=== PATIENT | male | born 1960 | race Caucasian/White ===

== ENCOUNTER 2022-05-05 02:27 | Day surgery (SDC) | payer MEDICARE, OTHER, SELFPAY ==
[2022-04-27 12:43] VITALS: BMI 29.8
--- NOTE | 2022-04-27 12:51 | PC.NURSE ---
Report to the Outpatient Waiting Room, entrance under the green pavilion located off [facility], at time 0730 on date 05/05/22. OR Time: 0930. - You and your visitor will be asked a series of questions to screen for COVID 19 for your protection. - Only one visitor is allowed at this time. - The patient visitor is requested to leave or wait in car when not with patient. - A mask is required within the hospital. Patients may have clear liquids (water, carbonated beverages, clear teas, apple juice) until 3 hours prior to surgery with a maximum of 20 ounces. - No food from midnight until time of surgery Take the following medications with a SIP of water the morning of surgery: METOPROLOL, CARBAMAZEPINE, PHENOBARBITAL Medications to discontinue per physician: N/A (TAKES VITAMIN ON MONDAY) Date to take last dose: N/A Please no make-up, nail american, hairspray, perfume, deodorant, or body powder the day of surgery. No jewelry (including any body piercings) or valuables the day of surgery, leave them at home. Please take a shower or bath the night before, or the morning of, surgery with an antibacterial soap. Wear comfortable, loose fitting clothing. - Jewelry must be removed prior to entering the operating room. Rings and piercings that are not removed may be cut off. - The hospital will not accept responsibility for valuables. - Please leave all valuables, including medications, at home the day of surgery. If you are going home after surgery, a licensed otr tanker truck driver must drive you home. - NO public transportation without another adult. - We recommend that an adult stay with you for 24 hours following discharge. - We also recommend that you do not drive, make important decision, drink alcoholic beverages, or take any drugs that were not prescribed by your health care provider for at least 24 hours after your discharge time. Follow any additional instructions given to you from your surgeon. If you or anyone in your household have experienced Covid symptoms in the past week, please notify your surgeon or the nurse liaison at the phone number below for possible testing. Telephone instructions given to PT AND - [facility] AND MARJORIE MITCHELL and asked if any additional questions and then verbalized understanding. Patient advised to call surgeon office or pre surgery nurse liaison [phone] if any additional questions.
--- NOTE | 2022-05-05 07:15 | WPDHPUPDATE1 ---
History and Physical Update Update Date/Time: 05/05/22 07:15 History and Physical has been reviewed, including an updated exam of the patient. There are NO changes in the patient's condition. Risks, benefits, and alternatives have been discussed and questions answered. Patient agrees to proceed with procedure.
[2022-05-05 08:12] VITALS: BP 155/87; PULSE 58; RESP 16; TEMP 36.4; O2SAT 100
[2022-05-05] MEDS: LACTATED RINGERS 1,000 ML 30 ML IV CONT ×2 (08:18→12:06)
--- NOTE | 2022-05-05 08:54 | P.PNAN_ITS ---
Anes - Initial Pre Proc Eval Procedure: Operation Date: 05/05/22 09:30 Proposed Procedures p Excision of Basal Cell Carcinoma Right Side Of Nose with Frozen Section, Possible Full Thickness Skin Graft, with Local Tissue Transfer or Complex Repair - Ignacio Brown MD Date/Time: 05/05/22 08:54 Surgeon: Ignacio Brown MD Pre Op Diagnosis: basal cell carcinoma right side of nose Patient Data Age: 61 Gender: M Height: 1.83 m Weight: 103.6 kg Last Vital Signs Temp 36.4 C L 05/05/22 08:12 Pulse 58 L 05/05/22 08:12 Resp 16 05/05/22 08:12 BP 155/87 H 05/05/22 08:12 Pulse Ox 100 05/05/22 08:12 O2 Del Method Room Air 05/05/22 08:12 Allergies Allergy/AdvReac Type Severity Reaction Status Date / Time naproxen [From Naprosyn] Allergy Other Verified 05/05/22 07:40 Home Medications Medication Instructions Recorded Confirmed Type carbamazepine 200 mg tablet See Rx Instructions .Route .COMPLEX 04/27/22 05/05/22 History ergocalciferol (vitamin D2) 1,250 1,250 mcg PO DAILY 04/27/22 05/05/22 History mcg (50,000 unit) capsule (Vitamin D2) lisinopril 5 mg tablet 5 mg PO DAILY 04/27/22 05/05/22 History metoprolol tartrate 25 mg tablet 1 tablet PO BID 04/27/22 05/05/22 History phenobarbital 100 mg tablet 100 mg PO BID 04/27/22 05/05/22 History Patient hx anesthesia problems: none Family hx anesthesia problems: none Results Review: All pre-operative results and documents have been reviewed as part of the pre- operative evaluation. [facility] Past Medical History Medical History Cerebral palsy Hypertension Seizure disorder Social History Social History Smoking packs per day: 1 Smoking cigarettes per day: 20.0 Years smoked: 40 Smoking pack-years: 40.00 Smoking status: Former smoker Tobacco type: cigarettes Smoking end date: 09/27/21 Additional smoking assessment comments: CURRENTLY CHEWS TOBACCO Alcohol intake: current Drinks per week: 2 Substance use: never Substance use type: does not use Living arrangements: with family Spiritual care concerns: No Anes - Eval Final PreProcedure Day of Procedure 05/05/22 08:54 Patient weight: obese Heart: regular rate and rhythm Lungs: decreased breath sounds Airway: Mallampati scale class II Neurological: alert and oriented Last oral intake: >/= 8 hours ASA classification: III Emergent: no Anesthetic plan: proceed Anesthesia type and monitoring: general LMA Results Review: All pre-operative results and documents have been reviewed as part of the pre- operative evaluation. Informed Consent: The patient's anesthetic plan and its attendant risks and benefits were discussed with the patient/family/POA. Questions were solicited and answers provided to the satisfaction of the patient/family/POA.
--- NOTE | 2022-05-05 10:26 | SUR.OPER ---
Basal Cell Carcinoma specimen given to Nakia in pathology department by VINCE Casillas. Pathology notified of frozen section prior to specimen being sent.
[2022-05-05] MEDS: LIDO 1%/EPINEPHRINE/PF 1:200,000 30 ML VIAL 10 ML INFILTRATE (11:06)
[2022-05-05 12:10] VITALS: BP 152/98; PULSE 70; RESP 16; O2SAT 100
[2022-05-05] MEDS: fentaNYL CITRATE INJ (*CRX) 100 MCG/2 ML VIAL 25 MCG IV PUSH ×2 (12:19→12:22)
[2022-05-05 12:40] VITALS: BP 176/87; PULSE 57; RESP 16
--- NOTE | 2022-05-05 15:45 | P.OP_ITS ---
Procedure Note - Detailed Date of Procedure 05/05/22 Pre-op Diagnosis basal cell carcinoma right side of nose Post-op Diagnosis Same Procedure Performed 1.5 cm excision of basal cell carcinoma of the right side of the nose with frozen section and island transposition flap from the forehead 6 sq cm. Surgeon Ignacio Brown MD Route [employer] Anesthesia MAC Indications Biopsy-proven basal cell carcinoma Description of Procedure The site was marked on the patient's nose as he waited in the holding area. He was taken to the operating room where he was placed supine on the operating table a time-out was held and confirmed. He was given IV sedation. The face was prepped and draped in usual fashion. The site was carefully marked for excision. It was locally infiltrated with 1% lidocaine with epinephrine. The circular excision was incised and dissected through the subcutaneous tissue to the deep muscle fascia. The specimen was taken off and sent to pathology with a marking for the most superior aspect as 12:00 o'clock. The pathologist confirmed the diagnosis of basal cell carcinoma and the margins were reported to be free. Due to the size and location of this defect complex repair or local advancement flap type reconstructions were not feasible or preferred. An island flap from the lower mid forehead was marked and infiltrated with lidocaine. This was carefully dissected to preserve a vascular pedicle attached to the supra trochlear artery. This was carefully developed and rotated to fill the defect.. There was carefully inset with 4-0 intradermal Vicryl and 6 0 nylon. The procedure was tolerated well discharged with suggestion for the use of Tylenol for pain due to his other medications. Estimated Blood Loss 2 Pathology Yes Condition Stable Disposition Same day
== END 2022-05-05 13:20 | disposition home or self-care (01) ==
PROVIDERS: PCP Family Medicine; Visit Provider Plastic Surgery
PROC: (CPT 14060; principal; 2022-05-05 09:30)
DX: C44.311 Basal cell carcinoma of skin of nose (principal); G80.9 Cerebral palsy, unspecified; I10 Essential (primary) hypertension; G40.909 Epilepsy, unspecified, not intractable, without status epilepticus; F17.220 Nicotine dependence, chewing tobacco, uncomplicated; E66.9 Obesity, unspecified; Z68.31 Body mass index [BMI] 31.0-31.9, adult
CPT/HCPCS: 14060; 88305; 88331; J2250; J2704; J3010; J7120